=== PATIENT | male | born 1995 | race Two or more races ===

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

== ENCOUNTER 2019-10-11 23:53 | Emergency (ER) | payer BC ==
[~2019-10-11] VITALS: Ht 182.9 cm; Wt 100.0 kg
[2019-10-11] MEDS ORDERED: LORazepam 2 MG/ML, 1ML ONE (23:56)
[2019-10-12] MEDS ORDERED: SODIUM CHLORIDE 0.9% 1,000ML IVBOLUS ONE
[2019-10-12] MEDS ORDERED: HALOPERIDOL 5 MG/ML IM PRN
[2019-10-12] MEDS ORDERED: LORazepam 2 MG/ML, 1ML IVPush ONE
[2019-10-12] MEDS ORDERED: ONDANSETRON 2MG/ML, 2ML IVPush ONE
[2019-10-12 00:15] LABS: BASOPHILS # (AUTO) 0.02 x10^3/uL (0-0.1); BASOPHILS % (AUTO) 0 % (0-1); EOSINOPHILS # (AUTO) 0.03 x10^3/uL (0-0.4); EOSINOPHILS % (AUTO) 0 % (1-7); LYMPHOCYTES # (AUTO) 2.99 x10^3/uL (1-3.4); LYMPHOCYTES % (AUTO) 27 % (22-44); MD NO; MEAN CORPUSCULAR HEMOGLOBIN 30.1 pg (27.5-34.5); MEAN CORPUSCULAR HGB CONC 33.6 g/dL (33.2-36.2); MEAN CORPUSCULAR VOLUME 89.8 fL (81-97); MEAN PLATELET VOLUME 7.9 fL (7.4-10.4); MONOCYTES # (AUTO) 0.84 x10^3/uL (0.2-0.8); MONOCYTES % (AUTO) 8 % (2-9); NEUTROPHILS # (AUTO) 7.07 x10^3/uL (1.8-6.8); NEUTROPHILS % (AUTO) 65 % (42-75); PLATELET COUNT 320 x10^3/uL (130-400); RED BLOOD COUNT 5.45 x10^6/uL (4.38-5.82); RED CELL DISTRIBUTION WIDTH 13.3 % (9.4-14.8)
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
[2019-10-12 00:27] LABS: ANION GAP 13 mmol/L (5-15); CALCIUM 8.8 mg/dL (8.5-10.1); CHLORIDE 110 mmol/L (98-107); SALICYLATE LEVEL 1.8 mg/dL (2.8-20.0)
[2019-10-12 00:30] LABS: ALANINE AMINOTRANSFERASE 41 U/L (12-78); ALKALINE PHOSPHATASE 69 U/L (45-117); BILIRUBIN,TOTAL 0.3 mg/dL (0.2-1.0); CREATININE 1.09 mg/dL (0.7-1.3); TOTAL PROTEIN 7.9 g/dL (6.4-8.2)
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
--- NOTE | 2019-10-12 00:42 | NUR ---
friend who dropped pt off today waould like to be called to pick pt up when he is discharged --- Ellen @[phone]
[2019-10-12] MEDS ORDERED: ONDANSETRON 2MG/ML, 2ML ONE (00:45)
--- NOTE | 2019-10-12 00:57 | NUR ---
Report received from KEILA Taylor. This RN to assume care.
[2019-10-12 01:15] VITALS: BP 119/64
--- NOTE | 2019-10-12 01:27 | NUR ---
Called patient's friend Ellen for fruit or nut picker. No answer; LVM.
--- NOTE | 2019-10-12 01:45 | NUR ---
Discharge instructions given. All questions and concerns addressed. Patient ambulatory with a steady gait. Belongings with patient. Advised patient that his friend was called to pick him up; patient understood.
== END 2019-10-12 01:48 | disposition home or self-care (01) ==
LOC: ED 10-12 00:23
DX: F12.122 Cannabis abuse with intoxication with perceptual disturbance (principal); F10.129 Alcohol abuse with intoxication, unspecified; R41.82 Altered mental status, unspecified; G92 Toxic encephalopathy; F41.9 Anxiety disorder, unspecified; R06.9 Unspecified abnormalities of breathing; Y90.0 Blood alcohol level of less than 20 mg/100 ml
CPT/HCPCS: 36415; 70450; 71045; 80053; 80307; 85025; 93005; 96374; 96375; 99285; J2060; J2405; J7030

== ENCOUNTER 2020-01-21 12:07 | Emergency (ER) | payer BC ==
[~2020-01-21] VITALS: Ht 193 cm; Wt 101.2 kg
--- NOTE | 2020-01-21 12:15 | NUR ---
PATIENT WALKED BACK FROM TRIAGE TO BATHROOM TO LEAVE URINE SAMPLE.
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
--- NOTE | 2020-01-21 12:29 | NUR ---
PATIENT STATES HE NO LONGER WISHES TO HARM HIMSELF.
[2020-01-21] MEDS ORDERED: LORazepam 2 MG/ML, 1ML IVPush ONE (12:30)
--- NOTE | 2020-01-21 12:52 | NUR ---
20 GAUGE IV STARTED LEFT AC, BLOOD TAKEN AND SENT TO LAB. PATIENT AMBULATED TO BATHROOM FOR URINE SAMPLE.
[2020-01-21] MEDS ORDERED: LORazepam 2 MG/ML, 1ML ONE (12:57)
[2020-01-21] MEDS ORDERED: SODIUM CHLORIDE 0.9% 1,000ML IVBOLUS ONE ×2 (13:00→14:00)
[2020-01-21] MEDS ORDERED: SODIUM CHLORIDE 0.9% 1,000 ML IV ONE (13:00)
[2020-01-21 13:06] LABS: BASOPHILS % (AUTO) 0 % (0-1); EOSINOPHILS % (AUTO) 0 % (1-7); LYMPHOCYTES % (AUTO) 11 % (22-44); MEAN CORPUSCULAR HEMOGLOBIN 30.1 pg (27.5-34.5); MEAN PLATELET VOLUME 7.5 fL (7.4-10.4); MONOCYTES % (AUTO) 5 % (2-9); NEUTROPHILS % (AUTO) 84 % (42-75); PLATELET COUNT 308 x10^3/uL (130-400); RED BLOOD COUNT 5.43 x10^6/uL (4.38-5.82); RED CELL DISTRIBUTION WIDTH 13.3 % (9.4-14.8)
[2020-01-21 13:13] LABS: ALBUMIN 4.7 g/dL (3.4-5.0); ANION GAP 11 mmol/L (5-15); CALCIUM 9.7 mg/dL (8.5-10.1); CHLORIDE 109 mmol/L (98-107)
[2020-01-21 13:15] LABS: SALICYLATE LEVEL < 1.7 mg/dL (2.8-20.0)
[2020-01-21 13:18] LABS: MD NO
[2020-01-21 13:24] LABS: ALANINE AMINOTRANSFERASE 23 U/L (12-78); ALKALINE PHOSPHATASE 71 U/L (45-117); BILIRUBIN,TOTAL 0.8 mg/dL (0.2-1.0); CREATININE 1.04 mg/dL (0.7-1.3); TOTAL PROTEIN 8.3 g/dL (6.4-8.2)
[2020-01-21 13:30] LABS: MICROSCOPIC INDICATED
[2020-01-21] MEDS ORDERED: SODIUM CHLORIDE FLUSH 10ML SYR IVF ONE (13:30)
[2020-01-21 13:37] LABS: AMPHETAMINE SCREEN, URINE Negative (Negative); BARBITURATE SCREEN, URINE Negative (Negative); BENZODIAZEPINE SCREEN, URINE Negative (Negative); CANNABINOID SCREEN, URINE Positive (Negative); COCAINE SCREEN, URINE Negative (Negative); METHADONE SCREEN, URINE Negative (Negative); OPIATE SCREEN, URINE Negative (Negative)
--- NOTE | 2020-01-21 13:58 | NUR ---
PATIENT RESTING IN CASI SANCHEZ, SUICIDE PRECAUTIONS IN PLACE, SITTER IN LINE OF SIGHT.
--- NOTE | 2020-01-21 14:19 | NUR ---
PYSCH PACKET FAXED TO [facility].
[2020-01-21 14:42] VITALS: BP 143/82
--- NOTE | 2020-01-21 15:21 | NUR ---
THROUGHPUT RN: [facility] STATES WILL ACCEPT PT AFTER COVID TEST.
--- NOTE | 2020-01-21 15:26 | NUR ---
PATIENT LAYING IN GURNEY ON PHONE, CASI, SUICIDE PRECAUTIONS IN PLACE, SITTER IN LINE OF SIGHT, WILL CONTINUE TO MONITOR.
--- NOTE | 2020-01-21 16:49 | NUR ---
REPORT CALLED TO KEILA ALMEIDA ON [facility].
--- NOTE | 2020-01-21 17:09 | NUR ---
PATIENT TRANSFERRED TO U IN STABLE CONDITION VIA WHEELCHAIR WITH CATALYST IMPREGNATOR, ALL PATIENT BELONGINGS TAKEN OUT OF LOCKED CABINET AND TAKEN UP TO FLOOR WITH PATIENT
[2020-01-21] MEDS ORDERED: GABA300C PO (18:39)
[2020-01-21] MEDS ORDERED: RISP2TAB35 PO (18:39)
[2020-01-21] MEDS ORDERED: BUSP10TA PO (18:39)
[2020-01-21] MEDS ORDERED: FLUO40CA9 PO (18:39)
== END 2020-01-21 17:10 ==
LOC: ED 12:51
DX: T43.222A Poisoning by selective serotonin reuptake inhibitors, intentional self-harm, initial encounter (principal); Z20.828 Contact with and (suspected) exposure to other viral communicable diseases; F32.2 Major depressive disorder, single episode, severe without psychotic features; E86.0 Dehydration; R45.851 Suicidal ideations; R10.9 Unspecified abdominal pain; Y92.89 Other specified places as the place of occurrence of the external cause
CPT/HCPCS: 36415; 80053; 80299; 80307; 80320; 80329; 81001; 84443; 85025; 87086; 87635; 93005; 96361; 96374; 99285; J2060; J7030; 96375; G0480

== ENCOUNTER 2020-01-21 16:14 | Inpatient (IN) | payer BC ==
[~2020-01-21] VITALS: Ht 193 cm; Wt 102.7 kg
[2020-01-21] MEDS ORDERED: ONDANSETRON ODT 4 MG PO PRN (17:00)
[2020-01-21] MEDS ORDERED: ACETAMINOPHEN 325 MG TABLET PO PRN (17:00)
[2020-01-21] MEDS ORDERED: BISACODYL 10 MG SUPP PR PRN (17:00)
[2020-01-21] MEDS ORDERED: POLYETHYLENE GLYCOL 17 GM PACKET PO PRN (17:00)
[2020-01-21 17:16] VITALS: BP 128/80
[2020-01-21] MEDS ORDERED: GABA300C PO (18:39)
[2020-01-21] MEDS ORDERED: RISP2TAB35 PO (18:39)
[2020-01-21] MEDS ORDERED: FLUO40CA9 PO (18:39)
[2020-01-21] MEDS ORDERED: BUSP10TA PO (18:39)
[2020-01-21 19:44] VITALS: BP 128/81
[2020-01-22 07:18] VITALS: BP 126/73
[2020-01-22 07:44] LABS: CHOL/HDL RATIO 3.8; LDL/HDL RATIO 2.3 (0.5-3.0)
[2020-01-22] MEDS: DOCUSATE 100 MG CAPSULE PO PRN ×2 (09:33→20:45)
[2020-01-22] MEDS: SERTRALINE 50MG TABLET PO SCH (11:49)
[2020-01-22 19:08] VITALS: BP 131/80
[2020-01-22] MEDS: BUSPIRONE 10 MG TABLET PO SCH (20:34)
[2020-01-22] MEDS: TRAZODONE 50MG TABLET PO PRN (20:34)
[2020-01-23 07:21] VITALS: BP 151/88
[2020-01-23] MEDS: BUSPIRONE 10 MG TABLET PO SCH ×2 (09:01→20:11)
[2020-01-23] MEDS: SERTRALINE 50MG TABLET PO SCH (09:01)
[2020-01-23 19:50] VITALS: BP 125/78
[2020-01-23] MEDS: TRAZODONE 50MG TABLET PO PRN ×2 (20:16→23:07)
[2020-01-24 07:23] VITALS: BP 136/83
[2020-01-24] MEDS: BUSPIRONE 10 MG TABLET PO SCH (08:49)
[2020-01-24] MEDS: SERTRALINE 50MG TABLET PO SCH (08:49)
[2020-01-24] MEDS ORDERED: SERT50TA28 PO (11:13)
[2020-01-24] MEDS ORDERED: RISP2TAB35 PO (11:13)
[2020-01-24] MEDS ORDERED: BUSP10TA PO (11:13)
[2020-01-24] MEDS ORDERED: TRAZ50TA66 PO (11:13)
== END 2020-01-24 11:57 | disposition home or self-care (01) | DRG 885 ==
LOC: 3E 17:13
PROVIDERS: ADMIT Psychiatry & Neurology Psychosomatic Medicine; ATTEND Psychiatry & Neurology Psychosomatic Medicine
DX: F33.3 Major depressive disorder, recurrent, severe with psychotic symptoms (principal); F12.10 Cannabis abuse, uncomplicated; F41.1 Generalized anxiety disorder; F43.10 Post-traumatic stress disorder, unspecified; F98.8 Other specified behavioral and emotional disorders with onset usually occurring in childhood and adolescence; G89.29 Other chronic pain; Z79.899 Other long term (current) drug therapy; Z91.5 Personal history of self-harm; K59.00 Constipation, unspecified
CPT/HCPCS: 36415; 80061; 93005